=== PATIENT | female | born 1995 | race African-American/Black ===

== ENCOUNTER 2023-12-21 22:23 | Emergency (ER) | payer SELFPAY ==
[~2023-12-21] VITALS: Ht 170.2 cm; Wt 82.0 kg
[2023-12-21 22:31] VITALS: TEMP 98.4; O2SAT 100
[2023-12-21 22:38] LABS: BASOPHILS % 0.8 % (0.0-2.0); EOSINOPHILS % 0.1 % (0.0-5.0); HEMATOCRIT. 42.4 % (36.0-48.0); HEMOGLOBIN. 13.8 g/dL (12.0-16.0); LYMPHOCYTES % 11.8 % (20.0-50.0); MEAN CORPUSCULAR HEMOGLOBIN 31.4 pg (28.0-32.0); MEAN CORPUSCULAR HGB CONC 32.7 g/dL (31.0-37.0); MEAN CORPUSCULAR VOLUME 96.3 fL (81.0-99.0); MEAN PLATELET VOLUME 10.4 fl (7.4-10.4); MONOCYTES % 3.8 % (2.0-8.0); NEUTROPHILS % 83.5 % (40.0-76.0); PLATELET 213 x1000/uL (130-400); RED CELL DISTRIBUTION WIDTH 13.7 % (11.6-14.6); WHITE BLOOD COUNT 9.5 x1000/uL (4.5-11.0)
[2023-12-21] MEDS: ONDANSETRON HCL 4MG/2ML INJ IV STA (22:41)
[2023-12-21] MEDS: SODIUM CHLORIDE 0.9% 1,000 ML IV ONE (22:42)
[2023-12-21 22:43] LABS: BG BASE EXCESS -7.6 mmol/L (-2.0-2.0); BG CARBOXYHEMOGLOBIN 0.3 % (0.5-1.5); BG DEOXYHEMOGLOBIN 0.3 % (0.0-5.0); BG FRACTION INSPIRED OXYGEN 100; BG HCO3 ACT 17.5 mmol/L (22.0-26.0); BG METHEMOGLOBIN 0.4 % (0.0-1.5); BG OXYGEN SATURATION 99.7 % (92.0-98.5); BG PCO2 34.8 mmHg (35.0-45.0); BG PH 7.319 (7.350-7.450); BG TOTAL HEMOGLOBIN 15.4 g/dL (12.0-18.0); BG VENT MODE MASK - NRB
[2023-12-21 22:46] LABS: CARBON DIOXIDE 21 mEq/L (21-32); CHLORIDE 108 mEq/L (98-107); POTASSIUM 3.9 mEq/L (3.5-5.1); SODIUM 141 mEq/L (136-145)
[2023-12-21 22:47] LABS: CALCIUM 8.4 mg/dL (8.7-10.4)
[2023-12-21 22:51] LABS: CREATININE 0.8 mg/dL (0.6-1.0); HCG SCREEN NEGATIVE
[2023-12-21 22:52] LABS: ETHANOL BLOOD 200 mg/dL (<10); GLUCOSE 133 mg/dL (70-105); TROPONIN I HIGH SENSITIVITY < 4 ng/L (3.0-34); UREA NITROGEN BLOOD 8 mg/dL (9-23)
[2023-12-21 22:53] LABS: ACETAMINOPHEN < 2 ug/mL (10-30); ALANINE AMINOTRANSFERASE 22 IU/L (10-49); ALBUMIN 4.1 g/dL (3.2-4.8); AMMONIA < 17 uMol/L (<32); ASPARTATE AMINOTRANSFERASE 36 IU/L (<34); CREATINE KINASE 78 IU/L (34-145)
[2023-12-21 22:54] LABS: BILIRUBIN DIRECT 0.1 mg/dL (<=3.0); BILIRUBIN TOTAL 0.3 mg/dL (0.1-1.0); PROTEIN TOTAL 7.3 g/dL (6.0-8.3)
[2023-12-21 23:01] LABS: LACTIC ACID 4.5 mmol/L (0.4-2.0)
[2023-12-21] MEDS: ONDANSETRON HCL 4MG/2ML INJ IV ONE (23:56)
[2023-12-22] MEDS: MAGNESIUM/ALUMINUM HYDROXIDE/SIMETHICONE 30ML UDC PO ONE (00:54)
[2023-12-22] MEDS: ONDANSETRON HCL 4MG/2ML INJ IV ONE (00:56)
[2023-12-22] MEDS: ACETAMINOPHEN 1000MG/100ML 100 ML IV ONE (01:40)
[2023-12-22] MEDS: METOCLOPRAMIDE HCL 10MG/2ML VIAL IV ONE (01:40)
[2023-12-22] MEDS ORDERED: METO-293 MT (03:04)
[2023-12-22 03:16] VITALS: BP 99/58; PULSE 92; RESP 16
== END 2023-12-22 03:16 | disposition home or self-care (01) ==
LOC: ER 22:23
DX: F10.129 Alcohol abuse with intoxication, unspecified (principal); R56.9 Unspecified convulsions; Y90.9 Presence of alcohol in blood, level not specified
CPT/HCPCS: 80076; 80048; 80307; 80329; 80320; 82140; 82550; 82962 ×2; 84703; 83605 ×2; 83690; 85025; 84484; 36415; 71045; 70450; 82805; 82375; 93005; 96361; 96375 ×2; 96376 ×2; 99285; 36600; 96365; J2405 ×2; J7030; Z7610; J2765; G0480; J0131